=== PATIENT | female | born 1940 | race Caucasian/White ===

== ENCOUNTER 2018-04-29 10:25 | Outpatient (CLI) | payer MEDICARE, BC, SELFPAY | END 2018-04-29 10:45 | LOC: LBO 10:39 → LOS 11:21 | PROVIDERS: PCP Family Medicine; Visit Provider Family Medicine | DX: E03.9 Hypothyroidism, unspecified (principal) | CPT/HCPCS: 36415; 84443 ==

== ENCOUNTER 2018-08-27 11:13 | Outpatient (CLI) | payer MEDICARE, BC, SELFPAY ==
[2018-08-27 15:22] LABS: COMMENT (LAB VIEW ONLY) 81.67 mg/dL; Microalb ug/mg Crea 7.7 ug/mg Cr
[2018-08-27 15:27] LABS: ALT 31 U/L (12-78); AST 19 U/L (15-37); Alkaline Phosphatase 65 U/L (46-116); Anion Gap 9.6 mmol/L (3-11); BUN 18 mg/dL (7-18); Bilirubin, Total 0.4 mg/dL (0.2-1.0); CO2 28.4 mmol/L (21.0-32.0); CREATININE 1.13 mg/dL (0.55-1.02); Calcium 9.2 mg/dL (8.5-10.1); Chloride 103 mmol/L (98-107); Estimated GFR 46.57 (mL/min/1.73m2); Glucose 83 mg/dL (70-100); Potassium 4.6 mmol/L (3.5-5.1); Sodium 141 mmol/L (136-145); TSH 1.19 uIU/mL (0.358-3.74); Total Protein 6.8 g/dL (6.4-8.2)
== END 2018-08-27 11:33 ==
PROVIDERS: PCP Family Medicine; Visit Provider Family Medicine
DX: E11.9 Type 2 diabetes mellitus without complications (principal); E03.9 Hypothyroidism, unspecified
CPT/HCPCS: 36415; 80053; 82043; 82570; 83036; 84443

== ENCOUNTER 2018-09-01 06:18 | Day surgery (SDC) | payer MEDICARE, BC, SELFPAY ==
--- NOTE | 2018-08-30 08:09 | POEE_ITS ---
History of Present Illness Chief Complaint: Progressive decreased vision, left eye Narrative: Patient is a 77-year-old lady with history of open-angle glaucoma, currently treated with atenolol who has developed moderate nuclear and cortical cataract of both eyes, left eye worse than right. She notes progressive d ecreased vision in both eyes left eye worse than right. She has a difficult time reading. On examination visual acuity was noted to be 20/60 in the left eye and the presence of moderate nuclear and cortical cataract. The option of cataract surgery was offered to the patient and she wished to proceed. NOTE: The Chief Complaint, HPI, Past Medical History, Past Surgical History, Family History, Social History, Medications, and complete Ophthalmic Exam with detailed Assessment and Plan have already been documented in the patient's outpatient ophthalmic record and are not covered again in detail here. [facility] Medical History Cortical cataract of left eye (Acute) Nuclear sclerotic cataract of left eye (Acute) Primary open angle glaucoma (POAG) of left eye, mild stage (Chronic) Type 2 diabetes mellitus (Chronic) Psoriasis (Chronic) Hypothyroidism (Chronic 01/05/13) Hyperlipidemia (Chronic 07/25/01) Glaucoma (Chronic) Carpal tunnel syndrome (Chronic) Depressive disorder (Resolved) Hemorrhoids (Resolved) Surgical History S/P carpal tunnel release (Inactive) Status post ORIF of fracture of ankle (Inactive) Cholecystectomy KNEE SURGERY Replacement of total knee joint Family History Mother Diabetes Father Diabetes Sister Diabetes Heart disease Brother No problems noted. Daughter No problems noted. Daughter No problems noted. Son No problems noted. Social History Smoking/Tobacco Use Status: Former Tobacco Use Meds Home Medications Medication Instructions Recorded Confirmed Type Timoptic 1 drp OU BID #3 12/04/12 08/28/18 History multivitamin 1 tab PO DAILY 12/04/12 08/28/18 History lancets #100 ea 12/29/12 08/25/18 History calcium carb and citrate-vitD3 1 ea PO BID 10/05/13 08/28/18 History One Touch Test Strips 1 strip MISCELLANEOUS DAILY PRN 10/15/13 08/25/18 Clinic #50 strip aspirin [Aspirin Low-Strength] 81 mg PO DAILY tab-cap 10/04/14 08/28/18 History triamcinolone acetonide 15 gm TOPICAL BID PRN #1 script 07/28/16 08/28/18 History Blood Glucose Test #100 strip 04/01/17 08/25/18 History indomethacin 25 mg PO TID PRN #30 tab-cap 08/28/17 08/28/18 History losartan 1 tab PO DAILY #90 tab 04/21/18 08/28/18 Rx simvastatin 1 tab PO DAILY #90 tab 04/21/18 08/28/18 Rx levothyroxine 88 mcg tablet 88 mcg PO DAILY #30 tab-cap 05/28/18 08/28/18 Rx metformin 500 mg tablet 500 mg PO DAILY #90 tab-cap 08/15/18 08/28/18 Rx hydrocortisone 2.5 % topical cream 1 applic TP BID PRN #20 gm 08/25/18 08/29/18 Rx sulfamethoxazole 800 1 tab PO BID #120 tab 08/25/18 08/25/18 Rx mg-trimethoprim 160 mg tablet Allergies Allergy/AdvReac Type Severity Reaction Status Date / Time adhesive Allergy Skin Unverified 08/25/18 09:41 reaction ceftriaxone Allergy Rash Unverified 08/25/18 09:41 bacitracin AdvReac Skin Unverified 08/25/18 09:41 reaction meperidine AdvReac nausea/vomi Unverified 08/25/18 09:41 ting Exam OCULAR EXAM:: Most recent ocular examination revealed corrected visual acuity of 20/40 OD, 20/60 OS. Her ocular pressure was 16 OU. Pupils equal, round, and reactive without afferent pupillary defect. Extraocular motility normal. Slit- lamp examination shows pupils dilating to 6 mm OU. 1+ nuclear/cortical cataract OD. 2+ nuclear with 1+ cortical cataract OS. Dilated funduscopic examination shows disc cupping of 0.4 OD 0.6 OS with normal vessels, macula, peripheral retina and vitreous. BRIGHTNESS ACUITY TESTING (BAT):: Brightness acuity testing of the left eye off 20/60. Low at 20/80. Medium 20/100. High 20/100. Assessment and Plan (1) Nuclear sclerotic cataract of left eye: Current visit: Yes Status: Acute Assessment: Visually significant cataract, left eye. Plan: Cataract extraction with intraocular lens implantation, left eye (2) Cortical cataract of left eye: Current visit: Yes Status: Acute Assessment: Visually significant cataract, left eye. Plan: Cataract extraction with intraocular lens implantation, left eye Note: NOTE:: The details of the planned surgery, including the risks, indications,limitations,expectations,outcome and possible complications were explained to the patient. The patient understands the complications including, but not limited to: infection, hemorrhage, posterior dislocation of the lens or nuclear fragments which may require the intervention of a vitreoretinal surgeon, possible loss of the eye, or from anesthetic complications. The patient has been made aware of the option of not having surgery, that vision following surgery may not be equal to that prior to surgery, and that the planned surgery may not achieve the intended results. Following this discussion, which the patient appeared to understand, the patient wishes to proceed with cataract surgery with lens implantation of the affected eye to improve and maximize vision.
[2018-09-01] MEDS: Tropicam./Phenyleph. (1/2.5%) 5 ML BTL OS ×3 (06:44→06:57)
[2018-09-01] MEDS: Tetracaine 0.5% 4 ML BTL OS ×4 (06:44→07:32)
[2018-09-01 06:46] VITALS: BP 147/69; PULSE 71; RESP 16; TEMP 36.6; O2SAT 97
[2018-09-01] MEDS: Lidocaine 2% Jelly 6 ML SYR (07:32)
[2018-09-01] MEDS: Balanced Salt Soln.-PLUS 500 ML BAG (07:38)
[2018-09-01] MEDS: Lidocaine 1% Pres-Free 5 ML VIAL (07:38)
[2018-09-01] MEDS: Povidone-Iodine Ophth 30 ML BTL (07:56)
--- NOTE | 2018-09-01 08:06 | W.PM.DSUDISC ---
Discharge Plan Discharge Details Reason For Visit: CATARACT OS Attending Provider: Pelon Olsen Primary Care Provider: Isabel Raza Home Meds and New Rx's Prescriptions: No Action sulfamethoxazole-trimethoprim [Bactrim DS] 800-160 mg tablet 1 tab PO BID Qty: 120 RF: 4 hydrocortisone 2.5 % cream 1 applic TP BID PRN (Reason: itching) Qty: 20 RF: 2 multivitamin 1 EACH tablet 1 tab PO DAILY RF: 0 TIMOPTIC 2.5 ML drops 1 drp OU BID Qty: 3 RF: 4 lancets 1 EACH misc 1 ea Miscellaneous DAILY PRNQty: 100 RF: 4 calcium carb and citrate-vitD3 1 EACH tablet extended release 1 ea PO BID RF: 0 ONE TOUCH TEST STRIPS 1 EACH strip 1 strip Miscellaneous DAILY PRNQty: 50 RF: 4 aspirin [Aspirin Low-Strength] 81 MG tablet,chewable 81 mg PO DAILY RF: 0 triamcinolone acetonide 15 GM cream 15 gm Topical BID PRNQty: 1 RF: 2 Blood Glucose Test 1 EACH strip 1 ea Miscellaneous DAILY Qty: 100 RF: 1 indomethacin 25 MG capsule 25 mg PO TID PRNQty: 30 RF: 1 simvastatin 40 MG tablet 1 tab PO DAILY Qty: 90 RF: 4 losartan 25 MG tablet 1 tab PO DAILY Qty: 90 RF: 4 levothyroxine 88 mcg tablet 88 mcg PO DAILY Qty: 30 RF: 4 metformin 500 mg tablet 500 mg PO DAILY Qty: 90 RF: 4 Discharge Instructions Stand Alone Forms: Post-op Topical Cataract, Brandyn Lopez (DSU) DS: Diagnosis Discharge Diagnosis (1) Status post cataract extraction and insertion of intraocular lens of left eye: Status: Chronic
--- NOTE | 2018-09-01 08:06 | W.PM.OP ---
Date of service: 09/01/18 Time of Service: 08:06 Operative Note DATE OF PROCEDURE: 09/01/18 PRE-OP DIAGNOSIS: Cataract, left eye POST-OP DIAGNOSIS: same PROCEDURE: Cataract extraction using phacoemulsification with intraocular lens implant, left eye SURGEON: Pelon Olsen ANESTHESIA: MAC and local (sub-tenon's anesthetic infiltration) PATHOLOGY: none sent COMPLICATIONS: None Patient was transported to: same day Patient's condition: stable Implants: [employer] Vision / [employer] Tecnis ZCB00 Indications: Progressive decreased vision due to cataract, left eye Procedure Description: CATARACT SURGERY OPERATIVE REPORT PREOPERATIVE DIAGNOSIS: Nuclear/cortical cataract, left eye POSTOPERATIVE DIAGNOSIS: Same OPERATION: Cataract extraction using phacoemulsification with posterior chamber intraocular lens implant, left eye. IOL: IOL Distributing Clerk/Model: [employer] Vision / SHAHBAZ Tecnis ZCB00 IOL Power: +15.5 diopters IOL Serial Number: [id number] Optic Diameter: 6.0mm Haptic/Overall Diameter: 13.0mm PHACO INFO: Andre [employer]ave[employer]Safety.comurion Vision System with OZil and Active Fluidics Cumulative Dispersed Energy (CDE): 9.89 seconds SURGEON: Pelon Olsen MD, BRANDON ANESTHESIA: Monitored Anesthesia Care (MAC), with local sub-tenon's anesthetic infiltration COMPLICATIONS: None SPECIMENS: None INDICATIONS FOR PROCEDURE: The patient is a 77-year-old lady with history of open-angle glaucoma, mild stage, both eyes who noted progressive decreased vision in both eyes at both distance and near. On examination she was noted to have moderate bilateral nuclear and cortical cataracts, left eye greater than right. The option of cataract surgery was offered to the patient and she wished to proceed. PROCEDURE: The correct surgical eye was identified and marked as the left eye and the pupil was dilated in the preoperative area using mydriatics and cycloplegics. The dilated pupil size was 7.0 mm. Oral sedation was administered in the form of an Imprimis MKO Melt (midazolam 3mg/ketamine 25mg/ondansetron 2mg). The patient was brought to the operating room where cardiopulmonary monitoring was instituted and surgical time-out was performed, confirming the correct operative eye and IOL power. Topical anesthesia was administered and ophthalmic povidone-iodine 5% was instilled into the conjunctival fornices. Lidocaine gel was applied to the cornea and the kahlil-ocular area was prepped with Betadine 10% solution and draped in the usual sterile fashion for intraocular surgery, including an aperture drape. A Tegaderm transparent film dressing was cut in half and used to cover the lashes and lid margins. Care was taken to sequester the lashes and lid margins under the Tegaderm dressing. A lid speculum was placed between the lids of the operative eye and the Nancy-Daxa operating microscope was maneuvered into position. Sharri scissors were then used to make a conjunctival buttonhole approximately 6mm posterior to the limbus in the inferonasal quadrant. Blunt dissection was carried out to expose bare sclera, and a blunt-tipped sub-tenon?s anesthesia cannula was introduced and passed posteriorly along the globe where non-preserved plain lidocaine was injected into posterior sub-Tenon?s space. A sideport knife was used to make a paracentesis port superior/superiortemporal, and the anterior chamber was filled with Healon GV. A 2.4mm keratome knife was used to create a half-thickness groove at the limbus and then to construct a three-plane near-clear corneal tunnel extending 2.0mm into clear cornea in the temporal position. . A flap was raised on the anterior capsule and capsulorhexis forceps were used to complete a continuous curvilinear capsulorhexis of 5.0 mm. Balanced salt solution was then used to perform cortical cleaving hydrodissection and nuclear hydrodelineation until the lens could be freely rotated within the capsular bag. The lens nucleus was then disassembled and removed within the capsular bag and iris plane using phacoemulsification. Residual cortical material was removed using the 45-degree angled silicone I/A tip with 0.3mm port. The posterior capsule was carefully polished to remove as much residual lens epithelial cells as safely possible. The capsular bag was then inflated and the anterior chamber deepened with viscoelastic. The lens implant described above was inserted into the capsular bag using the SHAHBAZ [place] Injector. A Kuglen hook was used to dial the IOL into position. Residual viscoelastic was then removed first from posterior to the IOL, then from the anterior chamber using the I/A handpiece. The lens implant was noted to center nicely within the capsular bag. The incisions were stromally hydrated, and the anterior chamber was reformed using BSS. Then 0.4cc of moxifloxacin 1.5mg/ml were injected into the capsular bag and anterior chamber. The incisions were checked with a Weck spear and found to be secure. Several drops of ophthalmic povidone-iodine 5% were then applied to the eye followed by two drops of Imprimis combination moxifloxacin/dexamethasone solution. The drapes were removed and a clear plastic protective eye shield was placed over the eye. The patient was then returned to Same Day Surgery in stable condition.
--- NOTE | 2018-09-01 08:09 | ROE_ITS ---
Date of service: 09/01/18 Time of Service: 08:06 Operative Note DATE OF PROCEDURE: 09/01/18 PRE-OP DIAGNOSIS: Cataract, left eye POST-OP DIAGNOSIS: same PROCEDURE: Cataract extraction using phacoemulsification with intraocular lens implant, left eye SURGEON: Pelon Olsen ANESTHESIA: MAC and local (sub-tenon's anesthetic infiltration) PATHOLOGY: none sent COMPLICATIONS: None Patient was transported to: same day Patient's condition: stable Implants: Beau [employer] Beau Vision / [employer] Tecnis ZCB00 Indications: Progressive decreased vision due to cataract, left eye Procedure Description: CATARACT SURGERY OPERATIVE REPORT PREOPERATIVE DIAGNOSIS: Nuclear/cortical cataract, left eye POSTOPERATIVE DIAGNOSIS: Same OPERATION: Cataract extraction using phacoemulsification with posterior chamber intraocular lens implant, left eye. IOL: IOL Vp Mobile Products/Model: J&J Vision / SHAHBAZ Tecnis ZCB00 IOL Power: +15.5 diopters IOL Serial Number: [id number] Optic Diameter: 6.0mm Haptic/Overall Diameter: 13.0mm PHACO INFO: Andre Wibkiurion Vision System with OZil and Active Fluidics Cumulative Dispersed Energy (CDE): 9.89 seconds SURGEON: Pelon Olsen MD, BRANDON ANESTHESIA: Monitored Anesthesia Care (MAC), with local sub-tenon's anesthetic infiltration COMPLICATIONS: None SPECIMENS: None INDICATIONS FOR PROCEDURE: The patient is a 77-year-old lady with history of open-angle glaucoma, mild stage, both eyes who noted progressive decreased vision in both eyes at both distance and near. On examination she was noted to have moderate bilateral nuclear and cortical cataracts, left eye greater than right. The option of cataract surgery was offered to the patient and she wished to proceed. PROCEDURE: The correct surgical eye was identified and marked as the left eye and the pupil was dilated in the preoperative area using mydriatics and cyc loplegics. The dilated pupil size was 7.0 mm. Oral sedation was administered in the form of an Imprimis MKO Melt (midazolam 3mg/ketamine 25mg/ondansetron 2mg). The patient was brought to the operating room where cardiopulmonary monitoring was instituted and surgical time-out was performed, confirming the correct operative eye and IOL power. Topical anesthesia was administered and ophthalmic povidone-iodine 5% was instilled into the conjunctival fornices. Lidocaine gel was applied to the cornea and the kahlil-ocular area was prepped with Betadine 10% solution and draped in the usual sterile fashion for intraocular surgery, including an aperture drape. A Tegaderm transparent film dressing was cut in half and used to cover the lashes and lid margins. Care was taken to sequester the lashes and lid margins under the Tegaderm dressing. A lid speculum was placed between the lids of the operative eye and the Nancy-Daxa operating microscope was maneuvered into position. Sharri scissors were then used to make a conjunctival buttonhole approximately 6mm posterior to the limbus in the inferonasal quadrant. Blunt dissection was carried out to expose bare sclera, and a blunt-tipped sub-tenon?s anesthesia cannula was introduced and passed posteriorly along the globe where non- preserved plain lidocaine was injected into posterior sub-Tenon?s space. A sideport knife was used to make a paracentesis port superior/superiortemporal, and the anterior chamber was filled with Healon GV. A 2.4mm keratome knife was used to create a half-thickness groove at the limbus and then to construct a three-plane near-clear corneal tunnel extending 2.0mm into clear cornea in the temporal position. . A flap was raised on the anterior capsule and capsulorhexis forceps were used to complete a continuous curvilinear capsulorhexis of 5.0 mm. Balanced salt solution was then used to perform cortical cleaving hydrodissection and nuclear hydrodelineation until the lens could be freely rotated within the capsular bag. The lens nucleus was then disassembled and removed within the capsular bag and iris plane using phacoemulsification. Residual cortical material was removed using the 45-degree angled silicone I/A tip with 0.3mm port. The posterior capsule was carefully polished to remove as much residual lens epithelial cells as safely possible. The capsular bag was then inflated and the anterior chamber deepened with viscoelastic. The lens implant described above was inserted into the capsular bag using the SHAHBAZ [place] Injector. A Kuglen hook was used to dial the IOL into position. Residual viscoelastic was then removed first from posterior to the IOL, then from the anterior chamber using the I/A handpiece. The lens implant was noted to center nicely within the capsular bag. The incisions were stromally hydrated, and the anterior chamber was reformed using BSS. Then 0.4cc of moxifloxacin 1.5mg/ml were injected into the capsular bag and anterior chamber. The incisions were checked with a Weck spear and found to be secure. Several drops of ophthalmic povidone-iodine 5% were then applied to the eye followed by two drops of Imprimis combination moxifloxacin/dexamethasone solution. The drapes were removed and a clear plastic protective eye shield was placed over the eye. The patient was then returned to Same Day Surgery in stable condition.
[2018-09-01 08:38] VITALS: BP 108/60; PULSE 61; RESP 14; TEMP 36.7; O2SAT 95
== END 2018-09-01 09:20 | disposition home or self-care (01) ==
LOC: SUR 06:18
PROVIDERS: PCP Family Medicine; Visit Provider Ophthalmology
PROC: (CPT 66984; principal; 2018-09-01 07:30)
DX: H25.812 Combined forms of age-related cataract, left eye (principal); E11.9 Type 2 diabetes mellitus without complications; Z79.84 Long term (current) use of oral hypoglycemic drugs; I10 Essential (primary) hypertension
CPT/HCPCS: 66984; V2632

== ENCOUNTER 2018-09-15 06:21 | Day surgery (SDC) | payer MEDICARE, BC, SELFPAY ==
--- NOTE | 2018-09-14 10:26 | POEE_ITS ---
History of Present Illness Chief Complaint: Progressive decreased vision, right eye Narrative: The patient is a 78-year old lady with history of open-angle who has been treated with laser trabeculoplasty of the right eye many years ago. She is currently maintained on topical timolol. She presented with complaints of diminished visual acuity in both eyes at both distance and near. On examination she was noted to have moderate bilateral nuclear and cortical cataracts, left eye worse than right. She was significantly symptomatic that she desired cataract surgery which was performed OS on 09/01/2018. Postoperatively she is doing well with uncorrected visual acuity of 20/20. She now presents for cataract surgery in the right eye. NOTE: The Chief Complaint, HPI, Past Medical History, Past Surgical History, Family History, Social History, Medications, and complete Ophthalmic Exam with detailed Assessment and Plan have already been documented in the patient's outpatient ophthalmic record and are not covered again in detail here. [facility] Medical History Cortical cataract of right eye (Acute) Nuclear sclerotic cataract of right eye (Acute) Primary open angle glaucoma (POAG) of right eye, mild stage (Chronic) Primary open angle glaucoma (POAG) of left eye, mild stage (Chronic) Type 2 diabetes mellitus (Chronic) Psoriasis (Chronic) Hypothyroidism (Chronic 01/05/13) Hyperlipidemia (Chronic 07/25/01) Glaucoma (Chronic) Carpal tunnel syndrome (Chronic) Cortical cataract of left eye (Resolved) Depressive disorder (Resolved) Hemorrhoids (Resolved) Nuclear sclerotic cataract of left eye (Resolved) Surgical History Status post cataract extraction and insertion of intraocular lens of left eye (Chronic 09/01/18) S/P carpal tunnel release (Inactive) Status post ORIF of fracture of ankle (Inactive) Cholecystectomy KNEE SURGERY Replacement of total knee joint Family History Mother Diabetes Father Diabetes Sister Diabetes Heart disease Brother No problems noted. Daughter No problems noted. Daughter No problems noted. Son No problems noted. Social History Smoking/Tobacco Use Status: Former Tobacco Use Meds Home Medications Medication Instructions Recorded Confirmed Type Timoptic 1 drp OU BID #3 12/04/12 09/01/18 History multivitamin 1 tab PO DAILY 12/04/12 09/01/18 History lancets #100 ea 12/29/12 09/01/18 History calcium carb and citrate-vitD3 1 ea PO BID 10/05/13 09/01/18 History One Touch Test Strips 1 strip MISCELLANEOUS DAILY PRN 02/20/14 01/07/19 Clinic #50 strip aspirin [Aspirin Low-Strength] 81 mg PO DAILY tab-cap 10/04/14 09/01/18 History triamcinolone acetonide 15 gm TOPICAL BID PRN #1 script 07/28/16 09/01/18 History Blood Glucose Test #100 strip 04/01/17 09/01/18 History indomethacin 25 mg PO TID PRN #30 tab-cap 08/28/17 09/01/18 History losartan 1 tab PO DAILY #90 tab 04/21/18 09/01/18 Rx simvastatin 1 tab PO DAILY #90 tab 04/21/18 09/01/18 Rx levothyroxine 88 mcg tablet 88 mcg PO DAILY #30 tab-cap 05/28/18 09/01/18 Rx metformin 500 mg tablet 500 mg PO DAILY #90 tab-cap 08/15/18 09/01/18 Rx hydrocortisone 2.5 % topical cream 1 applic TP BID PRN #20 gm 08/25/18 09/01/18 Rx sulfamethoxazole 800 1 tab PO BID #120 tab 08/25/18 09/01/18 Rx mg-trimethoprim 160 mg tablet Allergies Allergy/AdvReac Type Severity Reaction Status Date / Time adhesive Allergy Skin Verified 09/01/18 06:37 reaction ceftriaxone Allergy Rash Verified 09/01/18 06:37 bacitracin AdvReac Skin Verified 09/01/18 06:37 reaction meperidine AdvReac nausea/vomi Verified 09/01/18 06:37 ting Exam OCULAR EXAM:: Most recent ocular examination reveals best corrected visual acuity of 20/40 OD, 20/20 OS. Intraocular pressure is 16 OD, 15 OS. Pupils equal, round, and reactive without afferent pupillary defect. Extraocular motility is normal. Slit-lamp examination reveals pupils dilating to 6 mm OU. 1+ nuclear/cortical cataract, right eye. Well-positioned PCIOL, left eye. Dilated funduscopic examination reveals disc cupping of 0.4 OD 0.6 OS with good color. The optic nerves have good perfusion and normal color. The retinal vasculature is normal without significant tortuosity or abnormality. The maculas are normal in appearance with normal contour and foveal reflex appropriate for age. The peripheral retina and vitreous are normal. BRIGHTNESS ACUITY TESTING (BAT):: Brightness acuity testing of the right eye off 20/40. Low 20/60. Medium 20/70. High 20/80. Assessment and Plan (1) Nuclear sclerotic cataract of right eye: Current visit: No Status: Acute Assessment: Visually significant cataract, right eye. Plan: Cataract extraction with intraocular lens implantation, right eye (2) Cortical cataract of right eye: Current visit: No Status: Acute Assessment: Visually significant cataract, right eye. Plan: Cataract extraction with intraocular lens implantation, right eye Note: NOTE:: The details of the planned surgery, including the risks, indications,limitations,expectations,outcome and possible complications were explained to the patient. The patient understands the complications including, but not limited to: infection, hemorrhage, posterior dislocation of the lens or nuclear fragments which may require the intervention of a vitreoretinal surgeon, possible loss of the eye, or from anesthetic complications. The patient h as been made aware of the option of not having surgery, that vision following surgery may not be equal to that prior to surgery, and that the planned surgery may not achieve the intended results. Following this discussion, which the patient appeared to understand, the patient wishes to proceed with cataract surgery with lens implantation of the affected eye to improve and maximize vision.
--- NOTE | 2018-09-14 11:22 | W.PM.DSUDISC ---
Discharge Plan Discharge Details Reason For Visit: CATARACT OD Attending Provider: Pelon Olsen Primary Care Provider: Isabel Raza Home Meds and New Rx's Prescriptions: No Action sulfamethoxazole-trimethoprim [Bactrim DS] 800-160 mg tablet 1 tab PO BID Qty: 120 RF: 4 hydrocortisone 2.5 % cream 1 applic TP BID PRN (Reason: itching) Qty: 20 RF: 2 multivitamin 1 EACH tablet 1 tab PO DAILY RF: 0 TIMOPTIC 2.5 ML drops 1 drp OU BID Qty: 3 RF: 4 lancets 1 EACH misc 1 ea Miscellaneous DAILY PRNQty: 100 RF: 4 calcium carb and citrate-vitD3 1 EACH tablet extended release 1 ea PO BID RF: 0 ONE TOUCH TEST STRIPS 1 EACH strip 1 strip Miscellaneous DAILY PRNQty: 50 RF: 4 aspirin [Aspirin Low-Strength] 81 MG tablet,chewable 81 mg PO DAILY RF: 0 triamcinolone acetonide 15 GM cream 15 gm Topical BID PRNQty: 1 RF: 2 Blood Glucose Test 1 EACH strip 1 ea Miscellaneous DAILY Qty: 100 RF: 1 indomethacin 25 MG capsule 25 mg PO TID PRNQty: 30 RF: 1 simvastatin 40 MG tablet 1 tab PO DAILY Qty: 90 RF: 4 losartan 25 MG tablet 1 tab PO DAILY Qty: 90 RF: 4 levothyroxine 88 mcg tablet 88 mcg PO DAILY Qty: 30 RF: 4 metformin 500 mg tablet 500 mg PO DAILY Qty: 90 RF: 4 Discharge Instructions Stand Alone Forms: Post-op Topical Cataract, Brandyn Lopez (DSU) DS: Diagnosis Discharge Diagnosis (1) Status post cataract extraction and insertion of intraocular lens of right eye: Status: Chronic
--- NOTE | 2018-09-14 11:24 | W.PM.OP ---
Date of service: 09/15/18 Time of Service: 07:56 Operative Note DATE OF PROCEDURE: 09/15/18 PRE-OP DIAGNOSIS: Cataract, right eye PROCEDURE: Cataract extraction using phacoemulsification with intraocular lens implant, right eye SURGEON: Pelon Olsen ANESTHESIA: MAC and local (sub-tenon's anesthetic infiltration) ESTIMATED BLOOD LOSS: 0 PATHOLOGY: none sent COMPLICATIONS: None Patient was transported to: same day Patient's condition: stable Implants: [employer] / [employer] Tecnis [id number] intraocular lens Indications: Progressive decreased vision due to cataract, right eye Procedure Description: CATARACT SURGERY OPERATIVE REPORT PREOPERATIVE DIAGNOSIS: Nuclear/cortical cataract, right eye POSTOPERATIVE DIAGNOSIS: Same OPERATION: Cataract extraction using phacoemulsification with posterior chamber intraocular lens implant, right eye. IOL: IOL Superintendent Meters/Model: [employer] / SHAHBAZ Tecnis ZCB00 IOL Power: + 16.50 diopters IOL Serial Number: [id number] Optic Diameter: 6.0mm Haptic/Overall Diameter: 13.0mm PHACO INFO: [employer] Vision System with OZil and Active Fluidics Cumulative Dispersed Energy (CDE): 7.3 seconds SURGEON: Pelon Olsen MD, BRANDON ANESTHESIA: Monitored Anesthesia Care (MAC), with local sub-tenon's anesthetic infiltration COMPLICATIONS: None SPECIMENS: None INDICATIONS FOR PROCEDURE: Patient is a 78-year old lady with history of symptomatic bilateral nuclear and cortical cataracts, left eye worse than right. She has already undergone cataract surgery in the left eye on 09/01/2018 and is doing well postoperatively. She now presents for cataract surgery in the right eye. PROCEDURE: The correct surgical eye was identified and marked as the right eye and the pupil was dilated in the preoperative area using mydriatics and cycloplegics. The dilated pupil size was 7.0 mm. Oral sedation was administered in the form of an Imprimis MKO Melt (midazolam 3mg/ketamine 25mg/ondansetron 2mg). The patient was brought to the operating room where cardiopulmonary monitoring was instituted and surgical time-out was performed, confirming the correct operative eye and IOL power. Topical anesthesia was administered and ophthalmic povidone-iodine 5% was instilled into the conjunctival fornices. Lidocaine gel was applied to the cornea and the kahlil-ocular area was prepped with Betadine 10% solution and draped in the usual sterile fashion for intraocular surgery, including an aperture drape. A Tegaderm transparent film dressing was cut in half and used to cover the lashes and lid margins. Care was taken to sequester the lashes and lid margins under the Tegaderm dressing. A lid speculum was placed between the lids of the operative eye and the Nancy-Daxa operating microscope was maneuvered into position. Sharri scissors were then used to make a conjunctival buttonhole approximately 6mm posterior to the limbus in the inferonasal quadrant. Blunt dissection was carried out to expose bare sclera, and a blunt-tipped sub-tenon?s anesthesia cannula was introduced and passed posteriorly along the globe where non-preserved plain lidocaine was injected into posterior sub-Tenon?s space. A sideport knife was used to make a paracentesis port inferiortemporally, and the anterior chamber was filled with Healon GV. A 2.4mm keratome knife was used to create a half-thickness groove at the limbus and then to construct a three-plane near-clear corneal tunnel extending 2.0mm into clear cornea in the superiortemporal position. . A flap was raised on the anterior capsule and capsulorhexis forceps were used to complete a continuous curvilinear capsulorhexis of 5.0 mm. Balanced salt solution was then used to perform cortical cleaving hydrodissection and nuclear hydrodelineation until the lens could be freely rotated within the capsular bag. The lens nucleus was then disassembled and removed within the capsular bag and iris plane using phacoemulsification. Residual cortical material was removed using the 45-degree angled silicone I/A tip with 0.3mm port. The posterior capsule was carefully polished to remove as much residual lens epithelial cells as safely possible. The capsular bag was then inflated and the anterior chamber deepened with viscoelastic. The lens implant described above was inserted into the capsular bag using the SHAHBAZ [place] Injector. A Kuglen hook was used to dial the IOL into position. Residual viscoelastic was then removed first from posterior to the IOL, then from the anterior chamber using the I/A handpiece. The lens implant was noted to center nicely within the capsular bag. The incisions were stromally hydrated, and the anterior chamber was reformed using BSS. Then 0.4cc of moxifloxacin 1.5mg/ml were injected into the capsular bag and anterior chamber. The incisions were checked with a Weck spear and found to be secure. Several drops of ophthalmic povidone-iodine 5% were then applied to the eye followed by two drops of Imprimis combination moxifloxacin/dexamethasone solution. The drapes were removed and a clear plastic protective eye shield was placed over the eye. The patient was then returned to Same Day Surgery in stable condition.
[2018-09-15 06:41] VITALS: BP 136/64; PULSE 64; RESP 18; TEMP 36.9; O2SAT 97
[2018-09-15] MEDS: Tetracaine 0.5% 4 ML BTL OD ×4 (07:01→07:28)
[2018-09-15] MEDS: Tropicam./Phenyleph. (1/2.5%) 5 ML BTL OD ×3 (07:01→07:09)
[2018-09-15] MEDS: Lidocaine 2% Jelly 6 ML SYR (07:32)
[2018-09-15] MEDS: Povidone-Iodine Ophth 30 ML BTL (07:32)
[2018-09-15] MEDS: Balanced Salt Soln.-PLUS 500 ML BAG (07:32)
[2018-09-15] MEDS: Lidocaine 1% Pres-Free 5 ML VIAL (07:32)
[2018-09-15 08:25] VITALS: BP 109/52; PULSE 67; RESP 46; TEMP 36.1; O2SAT 94
== END 2018-09-15 08:35 | disposition home or self-care (01) ==
LOC: SUR 06:21
PROVIDERS: PCP Family Medicine; Visit Provider Ophthalmology
PROC: (CPT 66984; principal; 2018-09-15 07:30)
DX: H25.811 Combined forms of age-related cataract, right eye (principal); Z98.42 Cataract extraction status, left eye; Z96.1 Presence of intraocular lens; E11.9 Type 2 diabetes mellitus without complications; Z79.84 Long term (current) use of oral hypoglycemic drugs; I10 Essential (primary) hypertension
CPT/HCPCS: 66984; V2632

== ENCOUNTER 2018-11-17 15:20 | Outpatient (CLI) | payer MEDICARE, BC, SELFPAY ==
--- NOTE | 2018-11-17 12:30 | DI.RAD_ITS ---
SYMPTOMS/DIAGNOSIS: PAIN IN LEFT UPPER LUMBAR AREA, LOW BACK PAIN, M54.5 LUMBAR SPINE: No compression fractures are seen. There are prominent endplate osteophytes in the lower thoracic, as well as mid to lower lumbar levels. There is severe narrowing of the L2-3, L3-4 and L4-5 disc spaces. Mild disc space narrowing is seen at L1-2. There is moderate to severe disc space narrowing at L5-S1. Facet degenerative changes are also present. There is a mild degenerative scoliosis. Surgical clips are noted in the right upper quadrant. IMPRESSION: Severe degenerative disc changes.
== END 2018-11-17 15:40 ==
PROVIDERS: PCP Family Medicine; Visit Provider Family Medicine
DX: M54.5 Low back pain (principal); M54.6 Pain in thoracic spine; M51.37 Other intervertebral disc degeneration, lumbosacral region; M47.815 Spondylosis without myelopathy or radiculopathy, thoracolumbar region
CPT/HCPCS: 72110

== ENCOUNTER 2019-01-26 11:10 | Outpatient (CLI) | payer MEDICARE, BC, SELFPAY ==
[2019-01-26 12:35] LABS: Abs Immature Grans 0.02 k/cumm (0.0-0.09); Absolute Basophil Count 0.03 k/cumm (0.0-0.2); Absolute Eosinophil Count 0.02 k/cumm (0.0-0.7); Absolute Lymphocyte Count 1.45 k/cumm (1.2-3.4); Absolute Monocyte Count 0.64 k/cumm (0.11-0.7); Absolute Neutrophil Count 3.65 k/cumm (1.2-6.7); Basophils % 0.5; Eosinophils % 0.3; HCT 39.6 % (36.0-46.0); HGB 12.9 g/dL (12.0-15.5); Immature Grans % 0.3; Mean Corp. HGB Concentration 32.6 g/dL (32.0-36.0); Mean Corpuscular Hemoglobin 31.4 pg (27.0-33.0); Mean Corpuscular Volume 96.4 fL (80-95); Mean Platelet Volume 9.3 fL (8.0-11.0); Neutrophils % 62.9; Platelet Count 214 x1000/uL (130-400); RBC 4.11 m/cumm (4.00-5.20); RBC Distribution Width 13.9 % (11.7-14.6); White Blood Cell Count 5.81 k/cumm (4.4-10.8)
[2019-01-26 13:07] LABS: Hemoglobin A1C 5.5 % (4.5-6.2)
[2019-01-26 14:05] LABS: ALT 30 U/L (12-78); AST 18 U/L (15-37); Albumin 4.1 g/dL (3.4-5.0); Alkaline Phosphatase 76 U/L (46-116); Anion Gap 12.2 mmol/L (3-11); BUN 11 mg/dL (7-18); Bilirubin, Total 0.4 mg/dL (0.2-1.0); CO2 25.8 mmol/L (21.0-32.0); CREATININE 0.86 mg/dL (0.55-1.02); Calcium 9.2 mg/dL (8.5-10.1); Chloride 100 mmol/L (98-107); Glucose 98 mg/dL (70-100); Potassium 4.2 mmol/L (3.5-5.1); Sodium 138 mmol/L (136-145); TSH 1.73 uIU/mL (0.358-3.74); Total Protein 6.7 g/dL (6.4-8.2); Vitamin B12 436 pg/mL (193-986)
== END 2019-01-26 11:30 ==
PROVIDERS: PCP Family Medicine; Visit Provider Family Medicine
DX: Z86.2 Personal history of diseases of the blood and blood-forming organs and certain disorders involving the immune mechanism (principal); E11.9 Type 2 diabetes mellitus without complications; E03.9 Hypothyroidism, unspecified; E53.8 Deficiency of other specified B group vitamins
CPT/HCPCS: 36415; 80053; 82607; 83036; 84443; 85025

== ENCOUNTER → 2019-02-24 12:16 | Outpatient (BNVA) | payer MEDICARE, BC, SELFPAY | PROVIDERS: PCP Family Medicine; Referring Provider Family Medicine; Visit Provider Nurse Practitioner Adult Health | DX: R41.89 Other symptoms and signs involving cognitive functions and awareness (principal); R41.3 Other amnesia; E11.9 Type 2 diabetes mellitus without complications; Z79.84 Long term (current) use of oral hypoglycemic drugs | CPT/HCPCS: 99204; 99214 ==

== ENCOUNTER 2019-03-03 00:25 | Outpatient (CLI) | payer MEDICARE, BC, SELFPAY ==
--- NOTE | 2019-03-03 10:30 | DI.MRI_ITS ---
SYMPTOM/DIAGNOSIS: MEMORY LOSS R41.89, SYMPTOMS AND SIGNS, COGNITIVE FUNCTION, AWARENESS, COGNITIVE IMPAIRMENT BRAIN MRI: 03/03/19 MRI examination of the brain was performed according to the usual protocol. There is moderate generalized cerebral atrophy. There are multiple areas of abnormal signal in periventricular white matter sparing the corpus callosum consistent with microvascular ischemic changes. No other significant signal abnormality identified in the brain. The orbital and temporal bone structures appear intact. Pituitary appears intact. Normal flow void and [place] vasculature, Diffusion weighted imaging shows no evidence of infarction. Susceptibility weighted imaging shows no evidence of intracranial hemorrhage. CONCLUSION: Cerebral atrophy and microvascular ischemic changes. No other significant findings.
== END 2019-03-03 00:45 ==
PROVIDERS: PCP Family Medicine; Visit Provider Nurse Practitioner Adult Health
DX: R41.89 Other symptoms and signs involving cognitive functions and awareness (principal); G31.84 Mild cognitive impairment of uncertain or unknown etiology; G31.89 Other specified degenerative diseases of nervous system
CPT/HCPCS: 70551

== ENCOUNTER → 2019-03-24 08:12 | Outpatient (BNVA) | payer MEDICARE, BC, SELFPAY | PROVIDERS: PCP Family Medicine; Visit Provider Nurse Practitioner Adult Health | DX: R41.89 Other symptoms and signs involving cognitive functions and awareness (principal); R41.3 Other amnesia; G30.1 Alzheimer's disease with late onset; F02.80 Dementia in other diseases classified elsewhere, unspecified severity, without behavioral disturbance, psychotic disturbance, mood disturbance, and anxiety | CPT/HCPCS: 99212; 99215 ==

== ENCOUNTER 2019-05-13 11:31 | Outpatient (CLI) | payer MEDICARE, BC, SELFPAY ==
[2019-05-13 12:50] LABS: Hemoglobin A1C 5.8 % (4.5-6.2)
== END 2019-05-13 11:51 ==
PROVIDERS: PCP Family Medicine; Visit Provider Family Medicine
DX: E11.9 Type 2 diabetes mellitus without complications (principal)
CPT/HCPCS: 36415; 83036

== ENCOUNTER → 2019-06-10 09:51 | Outpatient (BNVA) | payer MEDICARE, BC, SELFPAY | PROVIDERS: PCP Family Medicine; Referring Provider Family Medicine; Visit Provider Nurse Practitioner Adult Health | DX: G56.02 Carpal tunnel syndrome, left upper limb (principal); E11.9 Type 2 diabetes mellitus without complications; Z79.84 Long term (current) use of oral hypoglycemic drugs; I10 Essential (primary) hypertension | CPT/HCPCS: 95908; 99213 ==

== ENCOUNTER → 2019-07-20 14:03 | Outpatient (BNVA) | payer MEDICARE, BC, SELFPAY | PROVIDERS: PCP Family Medicine; Referring Provider Family Medicine; Visit Provider Student in an Organized Health Care Education/Training Program | DX: G56.02 Carpal tunnel syndrome, left upper limb (principal) | CPT/HCPCS: 99203; 99214 ==

== ENCOUNTER 2019-08-12 05:55 | Day surgery (SDC) | payer MEDICARE, BC, SELFPAY ==
[2019-08-12 06:31] VITALS: BP 124/54; PULSE 63; RESP 22; TEMP 36.6; O2SAT 95
[2019-08-12] MEDS: Lactated Ringers 1,000 ML 80 ML IV (06:55)
--- NOTE | 2019-08-12 07:25 | W.PM.DSUDISC ---
Discharge Plan Disposition Patient Disposition: HOME Condition: Good Discharge Details Reason For Visit: Left Endoscopic Carpal Tunnel Release Attending Provider: Viet Abad Primary Care Provider: Isabel Raza Home Meds and New Rx's Prescriptions: New acetaminophen 500 mg tablet 1,000 mg PO Q8H PRN (Reason: pain) Qty: 60 RF: 3 Continued TIMOPTIC 2.5 ML drops 1 drp OU BID Qty: 3 RF: 4 metformin 500 mg tablet 500 mg PO DAILY Qty: 90 RF: 4 Hold Instructions: Home Medication placed on hold at Doctor's office simvastatin 40 mg tablet 40 mg PO DAILY Qty: 90 RF: 4 aspirin [Aspirin Low-Strength] 81 mg tablet,chewable 81 mg PO DAILY Qty: 30 RF: 6 calcium carb and citrate-vitD3 600 mg calcium- 500 unit tablet extended release 1 tab PO BID Qty: 60 RF: 6 multivitamin tablet 1 tab PO DAILY Qty: 30 RF: 6 sulfamethoxazole-trimethoprim [Bactrim DS] 800-160 mg tablet 1 tab PO BID Qty: 60 RF: 6 levothyroxine 88 mcg tablet 88 mcg PO DAILY Qty: 90 RF: 2 losartan 25 mg tablet 25 mg PO DAILY Qty: 90 RF: 4 citalopram 10 mg tablet 10 mg PO DAILY Qty: 90 RF: 2 Changed meloxicam 7.5 mg tablet 7.5 mg PO BID PRN (Reason: Pain) Qty: 60 RF: 5 Discontinued acetaminophen [Tylenol Extra Strength] 500 mg tablet 500 mg PO Q4H PRNRF: 0 Discharge Instructions Additional Instructions: You should take Tylenol and Meloxicam for pain control. You may take the Meloxicam 7.5mg twice a day if needed. I would recommend taking this twice a day for the first 3-5 days and then take as needed. Prescriptions for both of these have been called in to the pharmacy. Stand Alone Forms: Jenniffer Chen Tunnel Yvonne Referrals: Viet Abad MD [ [facility] STAFF PHYSICIAN] - Equipment/Supplies: Sling Activity:: Elevate Remove Dressings/Wound Care:: 72 hours Shower/Bathe:: 72 hours Diet:: As Tolerated Discharge Orders Discharge Orders: Discharge Order (Routine); Ordered 08/12/19 Ordered By: Viet G Prohaska DS: Diagnosis Discharge Diagnosis (1) Left carpal tunnel syndrome: Status: Acute
[2019-08-12] MEDS: CLINDAMYCIN 600 MG/50 ML BAG 100 MG IVPB (07:30)
[2019-08-12] MEDS: Lidocaine 1% Pres-Free 5 ML VIAL (07:42)
[2019-08-12] MEDS: Sodium Bicarbonate 50 MEQ/50 ML VIAL (07:42)
[2019-08-12 08:45] VITALS: BP 130/62; PULSE 63; RESP 18; TEMP 36.6; O2SAT 95
--- NOTE | 2019-08-12 20:59 | W.PM.OP ---
Date of service: 08/12/19 Time of Service: 08:06 Operative Note Operative Note DATE OF PROCEDURE: 08/12/19 PRE-OP DIAGNOSIS: Left Carpal Tunnel Syndrome POST-OP DIAGNOSIS: same PROCEDURE: Left Endoscopic Carpal Tunnel Release SURGEON: Viet Abad ANESTHESIA: GETRoberto ESTIMATED BLOOD LOSS: 0 PATHOLOGY: none sent TOURNIQUET TIME: 5 COMPLICATIONS: None Patient was transported to: same day Patient's condition: stable Indications: I have seen Malena in clinic for symptoms of carpal tunnel syndrome. The numbness, tingling, and pain limited function. Clinical exam findings confirmed the diagnosis of carpal tunnel syndrome. Nonoperative measures such as bracing, time, activity modifications had been tried but disability and pain persisted. I discussed carpal tunnel release with the patient. I reviewed the risks of the procedure to include, but not limited to, bleeding, infection, pain, stiffness, incomplete release, damage to nerves or vessels, persistent numbness, recurrence. Despite these risks, the patient elected to proceed. Findings: There was tightened carpal tunnel. This was dilated and released successfully with the endoscopic with increased space within the tunnel. The antebrachial fascia was released proximally freeing the median nerve at the wrist. Procedure Description: Malena was greeted in the preoperative holding area where the correct side was identified and marked. The consent was reviewed with the patient and signed. The history and physical was updated. All questions were answered. Malena was taken back to the operating room. The patient was placed into the supine position on the operating room table with the left arm on an arm board. A nonsterile tourniquet was placed high onto the arm. All bony prominences were well padded. Prophylactic antibiotics in the form of [Cefazolin] were administered. The left arm was then prepped with Chloraprep and draped in a standard fashion with stockinette and extremity drape. A timeout to confirm correct identity, side and site, procedure, allergies, anesthesia, and medical concerns was performed. The surgical site was marked in the volar wrist creases in line with the radial border of the fourth ray. This area was anesthetized with approximately 6cc of 1% Lidocaine. The limb was then exsanguinated with an Esmarch. The skin was incised with a 15 blade, approximately 1cm. The skin only was cut and the deeper tissue was dissected bluntly with a tenotomy scissor, avoiding passing nerve and venous structures. The fascia was penetrated and opened bluntly. A two-prong skin hook was placed under this proximal fascial edge. A series of hamate finders were used to identify and dilate the carpal tunnel. Synovial elevator was used to free synovial attachments to the underside of the transverse carpal ligament. My thumb was kept in the palm to sylvia the distal extent of the carpal tunnel and correctly position the hand. The Microaire endoscope was inserted without difficulty and without resistance. Excellent visualization showed horizontally running fibers of the transverse carpal ligament (TCL). The distal extent of the TCL was visualized and the end of the scope palpated with the thumb. The blade was elevated and withdrawn from distal to proximal. The TCL was split into two flaps. The endoscope was reinserted to confirm complete release and any remnant ligament was incised. The scope was withdrawn and the proximal aspect of the carpal tunnel was grossly inspected and appeared release with the median nerve visible. The antebrachial fascia at the level of the wrist was then freed from the overlying skin and then the underlying median nerve with blunt dissection. This was transected longitudinally for about 3cm proximal to the wrist incision. The wound was then irrigated with easy flow of irrigant distally and proximally. The incision was closed with a single 4-0 Nylon suture. The wound was dressed with Xeroform, Gauze, Kerlix and Ethan. The tourniquet was deflated with the initial dressing and held with some pressure. Blood flow returned easily to all digits with capillary refill less than 2 seconds. The patient tolerated the procedure well and was returned to the Same Day Surgery area in a stable condition suffering no known complication.
== END 2019-08-12 09:53 | disposition home or self-care (01) ==
PROVIDERS: PCP Family Medicine; Visit Provider Student in an Organized Health Care Education/Training Program
PROC: 01N54ZZ Release Median Nerve, Percutaneous Endoscopic Approach (ICD-10-PCS; CPT 29848; principal; 2019-08-12 07:30)
DX: G56.02 Carpal tunnel syndrome, left upper limb (principal)
CPT/HCPCS: 29848; L3650

== ENCOUNTER → 2019-08-24 10:38 | Outpatient (BNVA) | payer MEDICARE, BC, SELFPAY | PROVIDERS: PCP Family Medicine; Referring Provider Family Medicine; Visit Provider Student in an Organized Health Care Education/Training Program | DX: Z47.89 Encounter for other orthopedic aftercare (principal); G56.02 Carpal tunnel syndrome, left upper limb ==

== ENCOUNTER → 2019-09-14 10:49 | Outpatient (BNVA) | payer MEDICARE, BC, SELFPAY | PROVIDERS: PCP Family Medicine; Referring Provider Family Medicine; Visit Provider Nurse Practitioner Adult Health | DX: G30.1 Alzheimer's disease with late onset (principal); F02.80 Dementia in other diseases classified elsewhere, unspecified severity, without behavioral disturbance, psychotic disturbance, mood disturbance, and anxiety | CPT/HCPCS: 99213 ==

== ENCOUNTER 2019-10-30 09:04 | Day surgery (SDC) | payer MEDICARE, BC, SELFPAY ==
[2019-10-30 09:15] VITALS: BP 149/66; PULSE 72; RESP 16; TEMP 36.4; O2SAT 97
[2019-10-30] MEDS: Lactated Ringers 1,000 ML 80 ML IV (09:56)
[2019-10-30] MEDS: CLINDAMYCIN 600 MG/50 ML BAG 100 MG IVPB (13:05)
[2019-10-30] MEDS: Bupivacaine 0.5% Pres-Free 30 ML VIAL (13:13)
[2019-10-30] MEDS: Lidocaine 1% Multi-Dose 50 ML VIAL (13:13)
--- NOTE | 2019-10-30 13:34 | W.PM.DSUDISC ---
Discharge Plan Disposition Patient Disposition: HOME Condition: Good Discharge Details Reason For Visit: Correction hammertoes Attending Provider: Ervin Viera Primary Care Provider: Isabel Raza Home Meds and New Rx's Prescriptions: Continued amoxicillin-pot clavulanate 875-125 mg tablet 1 tab PO BID Qty: 20 RF: 0 terbinafine HCl [Athlete's Foot (terbinafine)] 1 % cream 1 applic TP BID Qty: 30 RF: 1 citalopram 20 mg tablet 20 mg PO DAILY Qty: 30 RF: 4 TIMOPTIC 2.5 ML drops 1 drp OU BID Qty: 3 RF: 4 aspirin [Aspirin Low-Strength] 81 mg tablet,chewable 81 mg PO DAILY Qty: 30 RF: 6 calcium carb and citrate-vitD3 600 mg calcium- 500 unit tablet extended release 1 tab PO BID Qty: 60 RF: 6 multivitamin tablet 1 tab PO DAILY Qty: 30 RF: 6 levothyroxine 88 mcg tablet 88 mcg PO DAILY Qty: 90 RF: 2 losartan 25 mg tablet 25 mg PO DAILY Qty: 90 RF: 4 sulfamethoxazole-trimethoprim [Bactrim DS] 800-160 mg tablet 1 tab PO BID Qty: 60 RF: 6 simvastatin 40 mg tablet 40 mg PO DAILY Qty: 90 RF: 4 acetaminophen 500 mg tablet 1,000 mg PO Q8H PRN (Reason: pain) Qty: 60 RF: 3 Discharge Instructions Activity:: Elevate Remove Dressings/Wound Care:: Do Not Remove Shower/Bathe:: Cover Diet:: Normal Diet Discharge Orders Discharge Orders: Discharge Order (Routine); Ordered 10/30/19 Ordered By: Ervin Viera DS: Diagnosis Discharge Diagnosis (1) Hammertoes of both feet: Start date: 10/30/19 Start time: 13:35 Status: Acute
--- NOTE | 2019-10-30 13:40 | ROE_ITS ---
DATE: OCTOBER 30, 2019 Preoperative Diagnosis: Chronic hammer toe deformities with distal clavi and history of recurrent ulcerations affecting the right third and left fourth digits. Postoperative Diagnosis: Same Operation: Flexor tenotomy of the affected digits Surgeon: Ervin Viera DPM Indications: Palliative treatments have struggled to maintain skin integrity and comfort and she is being brought to the Operating Room for flexor tenotomy of the affected digits. She understands the risks and complications pertaining to pain, scarring, infection, persistent breakdown of skin at the distal tip of the digits, the potential for revisional procedures. Informed consent has been obtained. No promises made to the final outcome of surgery. Procedure: Malena was brought to the Operating Suite. She was placed in the supine position where both feet were prepped and draped in the usual sterile podiatric fashion. Local anesthesia was provided injecting the right third and left fourth toes with 5 cc. of a 50:50 mixture 1% Lidocaine plain, 0.5% Marcaine plain, each digit receiving the same amount. Attention was now directed to the plantar aspect of the left 4th toe where utilizing an #18 gauge needle on a 3 cc. barrel, the needle was placed through the skin at the flexor set level of the toe. The tendon was immediately encountered. The needle was rotated side to side and the tendon was released. The digit relaxed. I was able to manipulate the toe at the PIP and DIP joint to straighten it and the hammer toe was corrected. The stab incision was closed with a simple #4-0 nylon suture. Xeroform gauze compression dressing was applied. The identical procedure was then performed to the right third toe without addition or deletion. Malena left the Operating Room, vital signs stable, vascular status intact. Sharp and sponge counts were correct. She will be followed by myself in the office next week.
== END 2019-10-30 14:15 | disposition home or self-care (01) ==
PROVIDERS: PCP Family Medicine; Visit Provider Podiatrist
PROC: (CPT 28011; principal; 2019-10-30 11:15)
DX: M20.41 Other hammer toe(s) (acquired), right foot (principal); M20.42 Other hammer toe(s) (acquired), left foot
CPT/HCPCS: 28011

== ENCOUNTER 2020-01-13 01:07 | Outpatient (CLI) | payer MEDICARE, BC, SELFPAY ==
[2020-01-13 11:40] LABS: Hemoglobin A1C 5.9 % (3.8-5.6)
[2020-01-13 11:46] LABS: ALT 30 U/L (14-59); AST 23 U/L (15-37); Alkaline Phosphatase 92 U/L (46-116); Anion Gap 7.3 mmol/L (3-11); BUN 22 mg/dL (7-18); Bilirubin, Total 0.5 mg/dL (0.2-1.0); CO2 28.7 mmol/L (21.0-32.0); CREATININE 1.24 mg/dL (0.55-1.02); Calcium 9.1 mg/dL (8.5-10.1); Chloride 102 mmol/L (98-107); Estimated GFR 41.62 (mL/min/1.73m2); Glucose 91 mg/dL (74-106); Potassium 4.6 mmol/L (3.5-5.1); Sodium 138 mmol/L (136-145); Total Protein 7.1 g/dL (6.4-8.2)
[2020-01-13 11:57] LABS: COMMENT (LAB VIEW ONLY) 72.77 mg/dL
== END 2020-01-13 01:27 ==
PROVIDERS: PCP Family Medicine; Visit Provider Family Medicine
DX: E11.9 Type 2 diabetes mellitus without complications (principal); E03.9 Hypothyroidism, unspecified; F32.9 Major depressive disorder, single episode, unspecified
CPT/HCPCS: 36415; 80053; 82043; 82570; 83036; 84443

== ENCOUNTER → 2020-02-16 12:19 | Outpatient (BNVA) | payer MEDICARE, BC, SELFPAY | PROVIDERS: PCP Family Medicine; Referring Provider Family Medicine; Visit Provider Nurse Practitioner Adult Health | DX: G30.1 Alzheimer's disease with late onset (principal); F02.80 Dementia in other diseases classified elsewhere, unspecified severity, without behavioral disturbance, psychotic disturbance, mood disturbance, and anxiety | CPT/HCPCS: 99213 ==

== ENCOUNTER 2020-04-11 10:47 | Outpatient (CLI) | payer MEDICARE, BC, SELFPAY ==
--- NOTE | 2020-04-11 12:15 | DI.RAD_ITS ---
EXAM: XR SHOULDER RT COMPLETE 2+V CLINICAL HISTORY: pain right shoulder M25.511 PAIN RT SHOULDER. TECHNIQUE: 2D digital imaging was performed. COMPARISON: CR RIGHT SHOULDER COMPLETE from 04/27/2017 FINDINGS: There is spurring at the AC joint and undersurface of the acromion. There is spurring at the humeral head and glenoid. The glenohumeral joint space is well maintained. The findings have worsened when compared with the previous exam. IMPRESSION: Increasing degenerative changes of the right shoulder. DATA REPOSITORY: RADIATION DOSE DELIVERED:
== END 2020-04-11 11:07 ==
PROVIDERS: PCP Family Medicine; Visit Provider Family Medicine
DX: M25.511 Pain in right shoulder (principal); M19.011 Primary osteoarthritis, right shoulder
CPT/HCPCS: 73030

== ENCOUNTER → 2020-05-17 12:24 | Outpatient (BNVA) | payer MEDICARE, BC, SELFPAY | PROVIDERS: PCP Family Medicine; Referring Provider Family Medicine; Visit Provider Nurse Practitioner Adult Health | DX: G30.1 Alzheimer's disease with late onset (principal); F02.80 Dementia in other diseases classified elsewhere, unspecified severity, without behavioral disturbance, psychotic disturbance, mood disturbance, and anxiety; E11.9 Type 2 diabetes mellitus without complications | CPT/HCPCS: 99213 ==

== ENCOUNTER → 2020-11-15 12:22 | Outpatient (BNVA) | payer MEDICARE, BC, SELFPAY | PROVIDERS: PCP Family Medicine; Referring Provider Family Medicine; Visit Provider Nurse Practitioner Adult Health | DX: R29.6 Repeated falls (principal); G30.9 Alzheimer's disease, unspecified; F02.80 Dementia in other diseases classified elsewhere, unspecified severity, without behavioral disturbance, psychotic disturbance, mood disturbance, and anxiety | CPT/HCPCS: 99213; 99214 ==

== ENCOUNTER 2020-11-25 01:40 | Outpatient (CLI) | payer MEDICARE, BC, SELFPAY ==
[2020-11-25 12:27] LABS: Abs Immature Grans 0.05 10^3/uL (0.0-0.06); Absolute Basophil Count 0.03 10^3/uL (0.0-0.2); Absolute Eosinophil Count 0.03 10^3/uL (0.0-0.7); Absolute Lymphocyte Count 1.47 10^3/uL (1.2-3.4); Absolute Monocyte Count 0.67 10^3/uL (0.1-0.8); Absolute Neutrophil Count 3.85 10^3/uL (1.2-6.7); Basophils % 0.5; Eosinophils % 0.5; HCT 40.4 % (36.0-46.0); HGB 12.7 g/dL (11.2-15.7); Immature Grans % 0.8; Lymphocytes % 24.1; MCH 30.8 pg (27.0-33.0); MCHC 31.4 % (32.0-36.0); MCV 98.1 fL (80-95); Neutrophils % 63.1; Nucleated RBC 0 %; Platelet Count 232 10^3/uL (130-400); RBC 4.12 10^6/uL (3.93-5.22); RDW 14.5 % (11.7-14.6); RDW-SD 52.4 fL
[2020-11-25 12:50] LABS: ALT 33 U/L (14-59); AST 23 U/L (15-37); Albumin 3.9 g/dL (3.4-5.0); Alkaline Phosphatase 80 U/L (46-116); Anion Gap 11.1 mmol/L (3-11); BUN 16 mg/dL (7-18); Bilirubin, Total 0.4 mg/dL (0.2-1.0); CO2 25.9 mmol/L (21.0-32.0); CREATININE 1.3 mg/dL (0.55-1.02); Chloride 106 mmol/L (98-107); Estimated GFR 39.31 (mL/min/1.73m2); Ferritin 76 ng/mL (8-252); Glucose 96 mg/dL (74-106); Sodium 143 mmol/L (136-145); TSH 0.77 uIU/mL (0.36-3.74); Total Protein 6.7 g/dL (6.4-8.2)
== END 2020-11-25 01:41 | disposition home or self-care (01) ==
LOC: LOS 01:40
PROVIDERS: PCP Family Medicine; Visit Provider Family Medicine
DX: I10 Essential (primary) hypertension (principal); E03.9 Hypothyroidism, unspecified; R53.83 Other fatigue; R63.8 Other symptoms and signs concerning food and fluid intake
CPT/HCPCS: 36415; 80053; 82728; 84443; 85025

== ENCOUNTER 2020-12-13 23:37 | Outpatient (REF) | payer MEDICARE, BC, SELFPAY ==
[2020-12-13 18:09] LABS: Anion Gap 10.6 mmol/L (3-11); BUN 23 mg/dL (7-18); CO2 26.4 mmol/L (21.0-32.0); CREATININE 1.3 mg/dL (0.55-1.02); Calcium 9.4 mg/dL (8.5-10.1); Chloride 103 mmol/L (98-107); Estimated GFR 39.31 (mL/min/1.73m2); Glucose 100 mg/dL (74-106); Potassium 4.5 mmol/L (3.5-5.1); Sodium 140 mmol/L (136-145)
== END 2020-12-13 23:38 | disposition home or self-care (01) ==
LOC: NCHCN 23:37
PROVIDERS: PCP Family Medicine; Visit Provider Family Medicine
DX: E11.8 Type 2 diabetes mellitus with unspecified complications (principal); R53.1 Weakness; F33.9 Major depressive disorder, recurrent, unspecified; I10 Essential (primary) hypertension; G30.1 Alzheimer's disease with late onset
CPT/HCPCS: 80048

== ENCOUNTER 2021-02-28 14:24 | Outpatient (REF) | payer MEDICARE, BC, SELFPAY ==
[2021-02-28 15:06] LABS: Abs Immature Grans 0.05 10^3/uL (0.0-0.06); Absolute Basophil Count 0.04 10^3/uL (0.0-0.2); Absolute Eosinophil Count 0.02 10^3/uL (0.0-0.7); Absolute Monocyte Count 0.69 10^3/uL (0.1-0.8); Absolute Neutrophil Count 4.49 10^3/uL (1.2-6.7); Basophils % 0.6; Eosinophils % 0.3; HCT 40.8 % (36.0-46.0); HGB 13.1 g/dL (11.2-15.7); Immature Grans % 0.7; Lymphocytes % 23.2; MCH 31.3 pg (27.0-33.0); MCHC 32.1 % (32.0-36.0); MCV 97.6 fL (80-95); MPV 9.8 fL (8.0-11.0); Neutrophils % 65.2; Nucleated RBC 0 %; Platelet Count 227 10^3/uL (130-400); RBC 4.18 10^6/uL (3.93-5.22); RDW 14.9 % (11.7-14.6); RDW-SD 54.2 fL; WBC 6.89 10^3/uL (4.4-10.8)
[2021-02-28 15:39] LABS: Anion Gap 9.4 mmol/L (3-11); BUN 16 mg/dL (7-18); CO2 27.6 mmol/L (21.0-32.0); CREATININE 1.1 mg/dL (0.55-1.02); Calculated LDL 56 mg/dL (<100); Chloride 103 mmol/L (98-107); Cholesterol 139 mg/dL (<200); Estimated GFR 47.67 (mL/min/1.73m2); Folate 15.8 ng/mL (8.6-20.0); Glucose 97 mg/dL (74-106); HDL Cholesterol 61 mg/dL (40-60); Potassium 4.7 mmol/L (3.5-5.1); Sodium 140 mmol/L (136-145); TSH (W/Ref FT4) 0.65 uIU/mL (0.36-3.74); Triglyceride 111 mg/dL (<150); Vitamin B12 387 pg/mL (193-986)
[2021-02-28 16:56] LABS: Hemoglobin A1C 6.2 % (<5.7)
== END 2021-02-28 14:25 | disposition home or self-care (01) ==
LOC: LBN 14:24
PROVIDERS: PCP Family Medicine; Visit Provider Nurse Practitioner Gerontology
DX: E11.8 Type 2 diabetes mellitus with unspecified complications (principal); F33.9 Major depressive disorder, recurrent, unspecified; I10 Essential (primary) hypertension; E03.9 Hypothyroidism, unspecified; M62.81 Muscle weakness (generalized); G30.1 Alzheimer's disease with late onset; E78.5 Hyperlipidemia, unspecified; Z79.899 Other long term (current) drug therapy
CPT/HCPCS: 80048; 80061; 82607; 82746; 83036; 84443; 85025

== ENCOUNTER 2021-04-17 14:32 | Outpatient (REF) | payer MEDICARE, BC, SELFPAY ==
[2021-04-17 17:09] LABS: Vitamin B12 787 pg/mL (193-986)
== END 2021-04-17 14:33 | disposition home or self-care (01) ==
LOC: LBN 14:32
PROVIDERS: PCP Family Medicine; Visit Provider Internal Medicine
DX: D51.9 Vitamin B12 deficiency anemia, unspecified (principal); E53.9 Vitamin B deficiency, unspecified
CPT/HCPCS: 82607

== ENCOUNTER 2021-06-13 16:04 | Outpatient (REF) | payer MEDICARE, BC, SELFPAY ==
[2021-06-13 16:52] LABS: Anion Gap 8.7 mmol/L (3-11); BUN 20 mg/dL (7-18); CO2 27.3 mmol/L (21.0-32.0); CREATININE 1.2 mg/dL (0.55-1.02); Chloride 104 mmol/L (98-107); Estimated GFR 43.12 (mL/min/1.73m2); Glucose 91 mg/dL (74-106); Potassium 4.2 mmol/L (3.5-5.1); Sodium 140 mmol/L (136-145)
== END 2021-06-13 16:05 | disposition home or self-care (01) ==
LOC: LBN 16:04
PROVIDERS: PCP Internal Medicine; Visit Provider Nurse Practitioner Gerontology
DX: I10 Essential (primary) hypertension (principal)
CPT/HCPCS: 80048

== ENCOUNTER 2021-08-09 03:07 | Outpatient (REF) | payer MEDICARE, BC, SELFPAY ==
[2021-08-08 17:13] LABS: Abs Immature Grans 0.04 10^3/uL (0.0-0.06); Absolute Basophil Count 0.05 10^3/uL (0.0-0.2); Absolute Eosinophil Count 0.04 10^3/uL (0.0-0.7); Absolute Lymphocyte Count 1.29 10^3/uL (1.2-3.4); Absolute Monocyte Count 0.62 10^3/uL (0.1-0.8); Absolute Neutrophil Count 3.47 10^3/uL (1.2-6.7); Basophils % 0.9; Eosinophils % 0.7; HCT 38.2 % (36.0-46.0); HGB 11.8 g/dL (11.2-15.7); Immature Grans % 0.7; Lymphocytes % 23.4; MCH 30.1 pg (27.0-33.0); MCHC 30.9 % (32.0-36.0); MCV 97.4 fL (80-95); MPV 9.9 fL (8.0-11.0); Monocytes % 11.3; Nucleated RBC 0 %; Platelet Count 216 10^3/uL (130-400); RBC 3.92 10^6/uL (3.93-5.22); RDW 14.7 % (11.7-14.6); RDW-SD 52.6 fL; WBC 5.51 10^3/uL (4.4-10.8)
[2021-08-08 18:37] LABS: Hemoglobin A1C 5.7 % (<5.7)
== END 2021-08-09 03:08 | disposition home or self-care (01) ==
LOC: LBN 03:07
PROVIDERS: PCP Internal Medicine; Visit Provider Internal Medicine
DX: E11.8 Type 2 diabetes mellitus with unspecified complications (principal); E78.5 Hyperlipidemia, unspecified; E03.9 Hypothyroidism, unspecified; G30.1 Alzheimer's disease with late onset
CPT/HCPCS: 80048; 83036; 84443; 85025

== ENCOUNTER 2021-11-28 16:03 | Outpatient (REF) | payer MEDICARE, MEDICAID, SELFPAY ==
[2021-11-28 16:53] LABS: Anion Gap 12.2 mmol/L (3-11); BUN 15 mg/dL (7-18); CO2 25.8 mmol/L (21.0-32.0); CREATININE 1.1 mg/dL (0.55-1.02); Calcium 9.5 mg/dL (8.5-10.1); Chloride 102 mmol/L (98-107); Estimated GFR 47.55 (mL/min/1.73m2); Glucose 92 mg/dL (74-106); Potassium 4.5 mmol/L (3.5-5.1); Sodium 140 mmol/L (136-145)
== END 2021-11-28 16:04 | disposition home or self-care (01) ==
LOC: LBN 16:03
PROVIDERS: PCP Internal Medicine; Visit Provider Nurse Practitioner Gerontology
DX: E11.8 Type 2 diabetes mellitus with unspecified complications (principal); I10 Essential (primary) hypertension; G30.1 Alzheimer's disease with late onset
CPT/HCPCS: 80048

== ENCOUNTER 2021-12-05 16:08 | Outpatient (REF) | payer MEDICARE, MEDICAID, SELFPAY ==
[2021-12-05 19:29] LABS: Hemoglobin A1C 5.7 % (<5.7)
== END 2021-12-05 16:09 | disposition home or self-care (01) ==
LOC: LBN 16:08
PROVIDERS: PCP Internal Medicine; Visit Provider Nurse Practitioner Gerontology
DX: E11.8 Type 2 diabetes mellitus with unspecified complications (principal)
CPT/HCPCS: 83036

== ENCOUNTER 2022-02-27 18:33 | Outpatient (REF) | payer MEDICARE, MEDICAID, SELFPAY ==
[2022-02-27 18:40] LABS: Anion Gap 9.7 mmol/L (3-11); BUN 16 mg/dL (7-18); CO2 27.3 mmol/L (21.0-32.0); CREATININE 1.1 mg/dL (0.55-1.02); Calcium 9.1 mg/dL (8.5-10.1); Calculated LDL 108 mg/dL (<100); Chloride 101 mmol/L (98-107); Cholesterol 199 mg/dL (<200); Estimated GFR 47.55 (mL/min/1.73m2); Glucose 120 mg/dL (74-106); HDL Cholesterol 55 mg/dL (40-60); Potassium 4.3 mmol/L (3.5-5.1); Sodium 138 mmol/L (136-145); TSH (W/Ref FT4) 0.66 uIU/mL (0.36-3.74); Triglyceride 180 mg/dL (<150); Vitamin B12 1423 pg/mL (193-986)
== END 2022-02-27 18:34 | disposition home or self-care (01) ==
LOC: LBN 18:33
PROVIDERS: PCP Internal Medicine; Visit Provider Nurse Practitioner Gerontology
DX: E78.5 Hyperlipidemia, unspecified (principal); D51.9 Vitamin B12 deficiency anemia, unspecified; I10 Essential (primary) hypertension; E03.9 Hypothyroidism, unspecified
CPT/HCPCS: 80048; 80061; 82607; 84443

== ENCOUNTER 2022-05-08 17:24 | Outpatient (REF) | payer MEDICARE, MEDICAID, SELFPAY ==
[2022-05-08 17:54] LABS: Abs Immature Grans 0.01 10^3/uL (0.0-0.06); Absolute Basophil Count 0.04 10^3/uL (0.0-0.2); Absolute Eosinophil Count 0.03 10^3/uL (0.0-0.7); Absolute Monocyte Count 0.64 10^3/uL (0.1-0.8); Absolute Neutrophil Count 3.87 10^3/uL (1.2-6.7); Basophils % 0.7; Eosinophils % 0.5; HCT 37.9 % (36.0-46.0); HGB 12.5 g/dL (11.2-15.7); Immature Grans % 0.2; Lymphocytes % 24.6; MCH 31.8 pg (27.0-33.0); MCV 96 fL (80-95); Monocytes % 10.5; Neutrophils % 63.5; Platelet Count 246 10^3/uL (130-400); RBC 3.93 10^6/uL (3.93-5.22); RDW 14.6 % (11.7-14.6); RDW-SD 51.2 fL; WBC 6.09 10^3/uL (4.4-10.8)
[2022-05-08 18:34] LABS: ALT 30 U/L (14-59); AST 22 U/L (15-37); Albumin 3.6 g/dL (3.4-5.0); Alkaline Phosphatase 71 U/L (46-116); Anion Gap 9.2 mmol/L (3-11); BUN 19 mg/dL (7-18); Bilirubin, Total 0.3 mg/dL (0.2-1.0); CO2 25.8 mmol/L (21.0-32.0); CREATININE 1.2 mg/dL (0.55-1.02); Calcium 8.9 mg/dL (8.5-10.1); Chloride 100 mmol/L (98-107); Estimated GFR 45.19 (mL/min/1.73m2); Glucose 119 mg/dL (74-106); Magnesium 1.7 mg/dL (1.8-2.4); Potassium 4.3 mmol/L (3.5-5.1); Sodium 135 mmol/L (136-145); Total Protein 6.3 g/dL (6.4-8.2)
[2022-05-10 05:19] LABS: Vitamin D 25 Total 40.1 ng/mL (30-100)
== END 2022-05-08 17:25 | disposition home or self-care (01) ==
LOC: LBN 17:24
PROVIDERS: PCP Internal Medicine; Visit Provider Nurse Practitioner Gerontology
DX: L40.9 Psoriasis, unspecified (principal); E11.8 Type 2 diabetes mellitus with unspecified complications; I10 Essential (primary) hypertension; E03.9 Hypothyroidism, unspecified; E78.5 Hyperlipidemia, unspecified
CPT/HCPCS: 80053; 82306; 83735; 85025

== ENCOUNTER 2022-07-04 19:03 | Outpatient (REF) | payer MEDICARE, MEDICAID, SELFPAY ==
[2022-07-04 17:26] LABS: Abs Immature Grans 0.02 10^3/uL (0.0-0.06); Absolute Basophil Count 0.05 10^3/uL (0.0-0.2); Absolute Eosinophil Count 0.04 10^3/uL (0.0-0.7); Absolute Lymphocyte Count 1.57 10^3/uL (1.2-3.4); Absolute Monocyte Count 0.49 10^3/uL (0.1-0.8); Absolute Neutrophil Count 5.21 10^3/uL (1.2-6.7); Basophils % 0.7; Eosinophils % 0.5; HCT 42.7 % (36.0-46.0); HGB 12.9 g/dL (11.2-15.7); Immature Grans % 0.3; Lymphocytes % 21.3; MCHC 30.2 % (32.0-36.0); MCV 103 fL (80-95); MPV 10.2 fL (8.0-11.0); Monocytes % 6.6; Neutrophils % 70.6; Platelet Count 222 10^3/uL (130-400); RBC 4.16 10^6/uL (3.93-5.22); RDW 14.3 % (11.7-14.6); RDW-SD 54.2 fL; WBC 7.38 10^3/uL (4.4-10.8)
[2022-07-04 17:42] LABS: Magnesium 1.6 mg/dL (1.8-2.4)
[2022-07-04 18:08] LABS: Vitamin D 25 Total 35.1 ng/mL (30-100)
== END 2022-07-04 19:04 | disposition home or self-care (01) ==
LOC: LBN 19:03
PROVIDERS: PCP Internal Medicine; Visit Provider Nurse Practitioner Gerontology
DX: E55.9 Vitamin D deficiency, unspecified (principal); D51.0 Vitamin B12 deficiency anemia due to intrinsic factor deficiency; E78.5 Hyperlipidemia, unspecified; R68.89 Other general symptoms and signs
CPT/HCPCS: 82306; 83735; 85025

== ENCOUNTER 2022-08-09 17:53 | Outpatient (REF) | payer MEDICARE, MEDICAID, SELFPAY ==
[2022-08-09 18:07] LABS: Bilirubin Negative (Negative); Blood Negative (Negative); Clarity Clear (Clear); Glucose Negative (Negative); Ketones Negative (Negative); Leukocyte Esterase Negative (Negative); Nitrite Negative (Negative); Specific Gravity >= 1.030 (1.005-1.025); Urobilinogen 0.2 EU/dL (Up TO 0.2)
== END 2022-08-09 17:54 | disposition home or self-care (01) ==
LOC: LBN 17:53
PROVIDERS: PCP Internal Medicine; Visit Provider Nurse Practitioner Gerontology
DX: N39.0 Urinary tract infection, site not specified (principal)
CPT/HCPCS: 81003; 87086

== ENCOUNTER 2022-09-10 18:23 | Outpatient (REF) | payer MEDICARE, MEDICAID, SELFPAY ==
[2022-09-10 18:58] LABS: Magnesium 2.1 mg/dL (1.8-2.4)
== END 2022-09-10 18:24 | disposition home or self-care (01) ==
LOC: LBN 18:23
PROVIDERS: PCP Internal Medicine; Visit Provider Nurse Practitioner Gerontology
DX: E11.8 Type 2 diabetes mellitus with unspecified complications (principal); G30.1 Alzheimer's disease with late onset
CPT/HCPCS: 83735

== ENCOUNTER 2022-10-10 18:18 | Emergency (ER) | payer MEDICARE, MEDICAID, SELFPAY ==
--- NOTE | 2022-10-10 18:15 | DI.CT_ITS ---
Exam(s) CT HEAD WO EXAM: CT HEAD WO CLINICAL HISTORY: head strike. TECHNIQUE: Imaging Protocol: Axial computed tomography images with coronal and sagittal reformatted images were created and reviewed COMPARISON: CT HEAD AND CSPINE W/O CONTRAST from 11/03/2017 FINDINGS: There are no skull fractures. There is no fluid in the visualized paranasal sinuses. There is no evidence of intracranial hemorrhage, mass effect, or shift of midline structures. There are no extra-axial fluid collections. The ventricles are not enlarged or shifted and there is no blo od within the ventricular system nor within the basal cisterns. There is symmetrical involutional change consistent with this patient's advanced age. There is some mild periventricular hypodensity consistent with chronic small vessel disease. This is slightly more prominent in the cortical right frontal region, more so than previous. In addition, there is a density in the anterior 3rd ventricle again noted which may be a colloid. Th is is unchanged from 2018. IMPRESSION: Subtle increase hypodensity in the subcortical right frontal parietal region. No evidence of intracr anial hemorrhage. If clinically indicated follow-up MRI with diffusion imaging can be performed for added sensitivity and specificity RADIATION DOSE DELIVERED: 711.76mGy.cm Total DLP DATA REPOSITORY: All CT scans at this facility are submitted to the National Radiology Data Registry (NRDR) Dose Index Registry (DIR) with the [employer] (A[employer]). RADIATION OPTIMIZATION: All CT scans at this facility use at least one of these dose optimization te chniques: automated exposure control; mA and/or kV adjustment per patient size (includes targeted exa ms where dose is matched to clinical indication); or iterative reconstruction.
[2022-10-10 18:20] VITALS: BP 114/49; PULSE 69; RESP 16; TEMP 36.8; O2SAT 97
--- NOTE | 2022-10-10 18:27 | W.ED.GENAD ---
Discharge Plan Disposition Patient Disposition: Home Discharge Details Clinical Impression: History of fall, Forehead laceration, History of tetanus, diphtheria, and acellular pertussis booster vaccination (Tdap) Primary Care Provider: Smiley Condon ED Provider: Kranthi Valverde Home Meds and New Rx's Prescriptions: No Action terbinafine HCl [Athlete's Foot (terbinafine)] 1 % cream 1 applic TP BID Qty: 30 1RF Rx Instructions: local application twice a day until rash is gone TIMOPTIC 2.5 ML drops 1 drp OU BID Qty: 3 Rx Instructions: Timolol 0.5% Ophth Opal 5ml aspirin [Aspirin Low-Strength] 81 mg tablet,chewable 81 mg PO DAILY Qty: 30 6RF calcium carb and citrate-vitD3 600 mg calcium- 500 unit tablet extended release 1 tab PO BID Qty: 60 6RF multivitamin tablet 1 tab PO DAILY Qty: 30 6RF citalopram 20 mg tablet 20 mg PO DAILY Qty: 90 4RF losartan 25 mg tablet 25 mg PO DAILY Qty: 90 4RF levothyroxine 88 mcg tablet 88 mcg PO DAILY Qty: 90 1RF Patient Comments: pt. states she took one hour before breakfast Rx Instructions: take one tablet daily simvastatin 40 mg tablet 40 mg PO DAILY Qty: 90 4RF sulfamethoxazole-trimethoprim 800-160 mg tablet 1 tab PO BID Qty: 120 3RF acetaminophen 500 mg tablet 1,000 mg PO Q8H PRN (Reason: pain) Qty: 60 3RF Discharge Instructions Additional Instructions: You were seen in the emergency department for your history of falling. Your CAT scan showed no sign of any bleeding in your head. If you develop any nausea or vomiting that does not stop please return to the emergency department. Otherwise please continue taking your medic as usual. If you develop any fevers streaking signs of infection from your laceration or if you have any other concerns please return to the emergency department Medical Decision Making Primary survey intact. Reassuring shock index. On secondary survey patient has a hemostatic approximately 1.5 cm linear laceration at the center of her forehead. Given that she is on 81 mg of aspirin and struck her head we will proceed with CT head. We will also update tetanus status. No reported syncope so we will not pursue any laboratory evaluation. No chest pain to suggest ACS. Acting at baseline with dementia with no vomitings no indication for lab work. If CT head is reassuring will discharge back to long term facility. Patient received 1 g of acetaminophen prehospital. 8:06 PM Patient had a reassuring CT scan and was discharged via ambulance back to her long term facility. HPI General Date/Time Provider Initiated Documentation: 10/10/22 18:24. HPI Narrative: This is a 82-year-old female with advanced dementia on 81 mg daily aspirin arriving via EMS in the setting of a fall. Patient lives locally at the [facility]. According to staff there she was reportedly in a wheelchair and she fell forward when reaching for an object. She has not been complaining of anything. She sustained a laceration to her forehead. Per protocol at the nursing facility laceration was cleaned and dressed with Steri-Strips and a bandage. The protocol was to observe the patient with neurochecks for several hours. Family requested transport to the ED for a CT scan. Secondary to the patient's severe dementia she offers no complaints. Related Data Home Medications Medication Instructions Recorded Confirmed Timoptic 1 drp OU BID ##3 12/04/12 03/29/22 aspirin 81 mg chewable tablet 81 mg PO DAILY #30 tab-caps 01/28/19 03/29/22 (Aspirin Low-Strength) calcium carb,cit ER 600 mg-vit D3 1 tab PO BID #60 tabs 01/28/19 03/29/22 12.5 mcg (500 unit) tablet,ext.rel multivitamin 1 tab PO DAILY #30 tabs 01/28/19 03/29/22 acetaminophen 500 mg tablet 1,000 mg PO Q8H PRN pain #60 tabs 08/12/19 03/29/22 terbinafine HCl 1 % topical cream 1 applic topical BID #30 grams 09/14/19 03/29/22 (Athlete's Foot (terbinafine)) citalopram 20 mg tablet 20 mg PO DAILY #90 tabs 01/12/20 03/29/22 losartan 25 mg tablet 25 mg PO DAILY #90 tabs 05/30/20 03/29/22 levothyroxine 88 mcg tablet 88 mcg PO DAILY #90 tab-caps 06/29/20 03/29/22 simvastatin 40 mg tablet 40 mg PO DAILY #90 tabs 11/23/20 03/29/22 sulfamethoxazole 800 1 tab PO BID #120 tabs 11/23/20 03/29/22 mg-trimethoprim 160 mg tablet Previous Rx's Medication Instructions Recorded aspirin 81 mg chewable tablet 81 mg PO DAILY #30 tab-caps 01/28/19 (Aspirin Low-Strength) calcium carb,cit ER 600 mg-vit D3 1 tab PO BID #60 tabs 01/28/19 12.5 mcg (500 unit) tablet,ext.rel multivitamin 1 tab PO DAILY #30 tabs 01/28/19 acetaminophen 500 mg tablet 1,000 mg PO Q8H PRN pain #60 tabs 08/12/19 terbinafine HCl 1 % topical cream 1 applic topical BID #30 grams 09/14/19 (Athlete's Foot (terbinafine)) citalopram 20 mg tablet 20 mg PO DAILY #90 tabs 01/12/20 losartan 25 mg tablet 25 mg PO DAILY #90 tabs 05/30/20 levothyroxine 88 mcg tablet 88 mcg PO DAILY #90 tab-caps 06/29/20 simvastatin 40 mg tablet 40 mg PO DAILY #90 tabs 11/23/20 sulfamethoxazole 800 1 tab PO BID #120 tabs 11/23/20 mg-trimethoprim 160 mg tablet Allergies Allergy/AdvReac Type Severity Reaction Status Date / Time adhesive Allergy Skin Verified 11/23/20 15:01 reaction ceftriaxone Allergy Rash Verified 11/23/20 15:01 bacitracin AdvReac Skin Verified 11/23/20 15:01 reaction meperidine AdvReac nausea/vomi Verified 11/23/20 15:01 ting PFSH All Active Problems (Updated 10/10/22 @ 18:34 by Kranthi Valverde MD) History of fall (Acute) Forehead laceration (Acute) History of tetanus, diphtheria, and acellular pertussis booster vaccination (Tdap) (Acute) Onychomycosis (Acute) Sensorineural hearing loss, bilateral (Acute) Advance care planning (Acute) will not fill out COLST for Natividad--he will not SHER (dyspnea on exertion) (Chronic) Perceived by spouse Goals of care, counseling/discussion (Acute) Balance disorder (Chronic) Sensorineural hearing loss of both ears (Acute) hearing tested 05/31/2020 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) Social isolation (Chronic) she and alone; do not socialize; rarely see their children Impaired mobility and ADLs (Chronic) has hired family friend to come in 2x/wk for 4 hrs each time Frequent falls (Chronic) documented since 2008 Abnormal auditory perception of left ear (Acute) Hammertoes of both feet (Acute) Essential hypertension (Chronic 10/02/13) Increased BMI (Chronic) Knee pain (Chronic) DJD-bilateral; H/O fx patella Status post total knee replacement (Acute) Status post knee surgery (Acute) Status post cholecystectomy (Acute) Hemorrhoids (Acute) Injury of nail (Acute) History of carpal tunnel surgery of left wrist (Acute 08/12/19) Alzheimer's dementia (Chronic) moderate to advanced 2020 Status post cataract extraction and insertion of intraocular lens of right eye (Chronic 09/15/18) Primary open angle glaucoma (POAG) of right eye, mild stage (Chronic) Status post cataract extraction and insertion of intraocular lens of left eye (Chronic 09/01/18) Primary open angle glaucoma (POAG) of left eye, mild stage (Chronic) Type 2 diabetes mellitus (Chronic) Psoriasis (Chronic) Hypothyroidism (Chronic 01/05/13) Hyperlipidemia (Chronic 07/25/01) Glaucoma (Chronic) open angle/ [facility] 6 months -2018: stable- also bilat.cataracts Carpal tunnel syndrome (Chronic) Bilateral, s/p release on right Medical History (Updated 10/10/22 @ 18:34 by Kranthi Valverde MD) Cholecystectomy spouse reports small section of intestine was removed at same time Cortical cataract of left eye Cortical cataract of right eye Depressive disorder Hemorrhoids Nuclear sclerotic cataract of left eye Nuclear sclerotic cataract of right eye Palliative care patient Surgical History History of cholecystectomy KNEE SURGERY PATELLECTOMY; right Replacement of total knee joint bilateral; H/O infection w/ B strep, 3 on the right, 2 on the left S/P carpal tunnel release Right Status post ORIF of fracture of ankle Left Family History Mother , age 78 Diabetes Dementia Father , age 80 +/- of old age Diabetes Sister , early 70s Diabetes Heart disease Brother , at 29 of accident Electrocution Daughter No problems noted. Daughter No problems noted. Son No problems noted. Social History Smoking/Tobacco Use Status: Former Tobacco Use Quit Date: 08/26/06 Smoking risk assessment performed?: Yes Alcohol Intake: never Drug use: Never Caregiver/Support person: Yes Household members: spouse Housing: house Number of Children: 3 Communication Needs: Hard of Hearing, Corrective Lenses and Cannot Read Education Level: high school Do you need help understanding health information?: Always Pets and animals: No Current gender identity: female What is your relationship status?: How often do you talk on the phone with friends or family?: never How often do you get together with friends or relatives?: never Panel score (0-1 are the most socially isolated patients): 1 What type of physical activity do you participate in: none, assisted ambulation and sedentary lifestyle Duration: < 15 minutes/day Frequency: daily Special preston needs: No Seatbelt use: always Working smoke detector in home: Yes Fire extinguisher in home: Yes Do you feel safe at home: Yes Do you feel safe in your relationship?: Yes Additional Social history: Lives with , Kuldip. since 1964, her first marriage, his second. Have 3 children together. He has daughter, Cori, from first marriage. Natividad feels closer emotionally to her step-daughter than she does to her own children. Kuldip reports that their 3 kids never visit, though they live nearby. Carl lives in [place], [place]; Rashida lives in [place], [place]; and Kayla lives in [facility]. Kayla stops in about once every 2 weeks and stays for 20 min. Her daughter, their granddaughter, did all the shopping for them during until May 2020. Has hired family friend, Isabel Jaramillo, to come in 8 hrs/week. She gives Natividad thorough bath, does personal care. Isabel's phone number: [phone]. They rely on her more than their kids. Exam Narrative Exam Narrative: General: Chronically ill-appearing in no acute distress Head: On the forehead, centrally there is a 1.5 cm hemostatic laceration that has been closed with Steri-Strips at the patient's long term facility. Ear, nose, mouth, throat: Grossly normal inspection. Normal voice, handling secretions normally. Neck: Trachea midline. Cardiovascular: Well-perfused distal extremities. No murmurs. Respiratory: Nonlabored respiration. Equal breath sounds bilaterally. Gastrointestinal: Nondistended abdomen. No signs of trauma to abdomen. Musculoskeletal: No lower extremity pitting edema. Nontender bilateral upper and lower extremities. No signs of sacral decubitus ulcer. Skin: Normal for age and race, grossly normal temperature and turgor. No acute rash. Neurologic: Alert and interactive: GCS 14: E4, V4, M6.
--- NOTE | 2022-10-10 18:58 | DI.VRAD_ITS ---
PROCEDURE INFORMATION: Exam: CT Head Without Contrast Exam date and time: 10/10/2022 6:44 PM Age: 82 years old Clinical indication: Injury or trauma; Fall; Blunt trauma (contusions or hematomas); Patient HX: Head strike TECHNIQUE: Imaging protocol: Computed tomography of the head without contrast. COMPARISON: MR HEAD^ROUTINE WO 03/03/2019 10:03 AM FINDINGS: Brain: Age-related involutional changes and chronic microvascular ischemic disease. No evidence for acute transcortical infarct. No mass effect or midline shift. No extra-axial collection. No acute intracranial hemorrhage. Basal cisterns are patent. 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 No hydrocephalus. Paranasal sinuses: Visualized sinuses are unremarkable. No fluid levels. Mastoid air cells: Visualized mastoid air cells are well aerated. Orbital cavities: Bilateral cataract surgery. Bones/joints: Unremarkable. No acute fracture. Soft tissues: Unremarkable. IMPRESSION: No evidence for acute transcortical infarct, acute intracranial hemorrhage, or mass effect. Dictated and Authenticated by: Stiven Aldrich MD. Ordering:ROSALIA Crisostomo MD
[2022-10-10 20:04] VITALS: BP 122/88; PULSE 66; RESP 18; TEMP 36.3; O2SAT 95
== END 2022-10-10 20:35 | disposition home or self-care (01) ==
LOC: ER 20:18
PROVIDERS: Emergency Provider Emergency Medicine; PCP Internal Medicine
DX: S01.81XA Laceration without foreign body of other part of head, initial encounter (principal); W07.XXXA Fall from chair, initial encounter
CPT/HCPCS: 90471; 99284; 70450

== ENCOUNTER 2022-11-06 17:23 | Outpatient (REF) | payer MEDICARE, MEDICAID, SELFPAY ==
[2022-11-06 17:08] LABS: Hemoglobin A1C 5.7 % (<5.7)
[2022-11-06 17:24] LABS: Magnesium 2.1 mg/dL (1.8-2.4); TSH (W/Ref FT4) 1.54 uIU/mL (0.36-3.74)
== END 2022-11-06 17:24 | disposition home or self-care (01) ==
LOC: LBN 17:23
PROVIDERS: PCP Internal Medicine; Visit Provider Nurse Practitioner Gerontology
DX: E11.9 Type 2 diabetes mellitus without complications (principal); E03.9 Hypothyroidism, unspecified; I10 Essential (primary) hypertension; E78.5 Hyperlipidemia, unspecified; R68.89 Other general symptoms and signs
CPT/HCPCS: 83036; 83735; 84443

== ENCOUNTER 2023-09-09 15:50 | Outpatient (REF) | payer MEDICARE, MEDICAID, SELFPAY ==
[2023-09-09 16:44] LABS: ALT 31 U/L (14-59); AST 25 U/L (15-37); Albumin 3.5 g/dL (3.4-5.0); Alkaline Phosphatase 70 U/L (46-116); Anion Gap 12.1 mmol/L (3-11); BUN 22 mg/dL (7-18); Bilirubin, Total 0.4 mg/dL (0.2-1.0); CO2 22.9 mmol/L (21.0-32.0); CREATININE 1.1 mg/dL (0.55-1.02); Calcium 8.9 mg/dL (8.5-10.1); Chloride 105 mmol/L (98-107); Estimated GFR 49.55 (mL/min/1.73m2); Glucose 108 mg/dL (74-106); Potassium 4.7 mmol/L (3.5-5.1); Sodium 140 mmol/L (136-145); TSH (W/Ref FT4) 1.23 uIU/mL (0.36-3.74); Total Protein 6.2 g/dL (6.4-8.2)
[2023-09-09 16:51] LABS: Hemoglobin A1C 5.3 % (<5.7)
[2023-09-09 17:02] LABS: Vitamin D 25 Total 37.3 ng/mL (30-100)
[2023-09-09 17:41] LABS: Vitamin B12 476 pg/mL (193-986)
== END 2023-09-09 15:51 | disposition home or self-care (01) ==
LOC: LBN 15:50
PROVIDERS: PCP Internal Medicine; Visit Provider Nurse Practitioner Gerontology
DX: E11.8 Type 2 diabetes mellitus with unspecified complications (principal); E55.9 Vitamin D deficiency, unspecified
CPT/HCPCS: 80053; 82306; 82607; 83036; 83735; 84443